=== PATIENT | male | born 1965 | race African-American/Black ===

== ENCOUNTER 2020-04-16 11:31 | Emergency (ER) | payer BC, OTHER ==
[~2020-04-16 11:31] MED LIST: Sterile Water Irrigation 250 ML BOT ONE
[2020-04-16] MEDS ORDERED: Lidocaine 1% w/Epinephrine 1:100K 20 ML VIAL ONE (11:44)
[2020-04-16] MEDS ORDERED: Bacitracin 1 PK ONE (12:03)
== END 2020-04-16 12:12 | disposition home or self-care (01) ==
LOC: MADERS 11:31
DX: S01.81XA Laceration without foreign body of other part of head, initial encounter (principal); W01.0XXA Fall on same level from slipping, tripping and stumbling without subsequent striking against object, initial encounter
CPT/HCPCS: 12013